=== PATIENT | male | born 1965 | race Caucasian/White ===

== ENCOUNTER → 2016-08-26 | Outpatient (CLI) | payer BC ==
--- NOTE | 2016-08-26 11:30 | DX ---
Cervical Spine, Three Views History: Follow fusion, M 89.1, surgery May 16, 2016 Comparison: June 15, 2016 Findings: Alignment remains straight, and anatomic. Anterior interbody fusion constructs between C3 a nd C4 and between C6 and C7 are in stable excellent position. There is no evidence for a plate or scr ew fracture, or bone plug migration or compression. There is no new prevertebral soft tissue swelling . This spaces above and below the fusion maintain normal height. Impression: Stable postoperative alignment x3 months.
== END ==
LOC: FIMAGING 10:45
PROVIDERS: ATTEND Orthopaedic Surgery Orthopaedic Surgery of the Spine
DX: Z98.890 Other specified postprocedural states (principal); Z98.1 Arthrodesis status

== ENCOUNTER → 2016-11-29 | Outpatient (CLI) | payer BC | LOC: FIMAGING 11:38 | PROVIDERS: ATTEND Orthopaedic Surgery Orthopaedic Surgery of the Spine | DX: Z09 Encounter for follow-up examination after completed treatment for conditions other than malignant neoplasm (principal); Z98.1 Arthrodesis status; M12.88 Other specific arthropathies, not elsewhere classified, other specified site ==

== ENCOUNTER → 2017-03-29 | Outpatient (CLI) | payer BC | LOC: FIMAGING 11:34 | PROVIDERS: ATTEND Orthopaedic Surgery Orthopaedic Surgery of the Spine | DX: Z98.1 Arthrodesis status (principal) ==

== ENCOUNTER → 2018-03-19 | Outpatient (CLI) | payer BC | LOC: FIMAGING 16:25 | PROVIDERS: ATTEND Family Medicine | DX: M25.812 Other specified joint disorders, left shoulder (principal); Z87.828 Personal history of other (healed) physical injury and trauma; Z98.1 Arthrodesis status ==

== ENCOUNTER → 2018-07-05 | Outpatient (CLI) | payer BC | LOC: FIMAGING 11:11 | PROVIDERS: ATTEND Urology | DX: N20.0 Calculus of kidney (principal); N40.0 Benign prostatic hyperplasia without lower urinary tract symptoms ==